=== PATIENT | female | born 1960 | race Caucasian/White ===

== ENCOUNTER → 2025-02-06 11:13 | Outpatient (REF) | payer OTHER, SELFPAY ==
[2025-02-06 13:32] LABS: Rubella Positive
[2025-02-08 04:05] LABS: Quantiferon Mitogen minus NIL 9.96 IU/mL; Quantiferon NIL 0.04 IU/mL; Quantiferon Plus TB1 minus NIL 0.01 IU/mL (<=0.34); Quantiferon Plus TB2 minus NIL 0.03 IU/mL (<=0.34); Quantiferon TB Gold Plus Negative (Negative)
== END ==
LOC: OHS 11:13
PROVIDERS: ATTENDING PHYSICIAN Nurse Practitioner Family
DX: Z23 Encounter for immunization (principal)
CPT/HCPCS: 36415; 86480; 86735; 86762; 86765; 86787

== ENCOUNTER 2025-06-07 17:51 | Emergency (ER) | payer BC, SELFPAY ==
[2025-06-07 17:53] VITALS: BP 150/70
[2025-06-07] MEDS: BENADRYL 50 MG IV (19:00)
[2025-06-07] MEDS: PEPCID 20 MG IV (19:01)
[2025-06-07] MEDS: DELTASONE 50 MG PO (19:02)
--- NOTE | 2025-06-07 20:04 | ED.GENMED ---
History of Present Illness
General
Chief Complaint: Allergic Reaction
Time Seen by Provider: 06/07/25 18:41
Nursing documentation reviewed up to this point in time: agreed with
History of Present Illness
History of Present Illness:
65-year-old female presents to the ER for evaluation of diffuse itchiness and feeling of lip and tongue swelling which started shortly after eating a shrimp seafood boil. Patient states that she experienced these symptoms once before that resolved
after treatment in the emergency department. She has not followed up with her detailer. She did not take any medications prior to arrival. She states that she did have a blotchy rash all over prior to arrival, this seems to have improved. She
does report severe persistent diffuse pruritus. No dyspnea. No nausea or vomiting.
Past History
Past History
ED Past Medical History: Other (IBS, Fibromyalgia, Frequent UTI's, incontinence, pelvic floor syndrome)
ED Past Surgical History: None
Social History
Tobacco: Non-smoker
Alcohol: None
Personal:
Living: with family
Review of Systems
Review of Systems
Allergies reviewed?: Yes
Phy Exam
Physical Exam
Physical Exam:
Patient is awake, alert, appears in no acute distress, mucous membranes moist, conjunctiva pink, posterior pharynx appears normal without edema or uvular deviation, no sublingual swelling seen, no swelling to lips noted, no stridor, no trismus,
heart regular rate and rhythm without murmurs or ectopy, lungs are clear to auscultation without wheezes rales or rhonchi, abdomen is soft and nontender, no rash seen, GCS is 15
Course
Orders/Labs/Results
Orders:
Orders
06/07/25 18:51
Diphenhydramine [Benadryl] 50 mg IV NOW STA
Famotidine [Pepcid] 20 mg IV NOW STA
06/07/25 19:01
Prednisone [Deltasone] 50 mg .ROUTE .STK-MED ONE
Prednisone [Deltasone] 50 mg PO NOW STA
06/08/25 08:00
Prednisone [Deltasone] 50 mg PO DAILY
Vital Signs
Initial and Last Documented VS:
Initial Vital Signs
Temp Pulse Resp BP Pulse Ox
98.3 F 70 18 150/70 96
06/07/25 17:53 06/07/25 17:53 06/07/25 17:53 06/07/25 17:53 06/07/25 17:53
Last Documented Vital Signs
Temp Pulse Resp BP Pulse Ox
98.3 F 70 18 150/70 96
06/07/25 17:53 06/07/25 17:53 06/07/25 17:53 06/07/25 17:53 06/07/25 20:05
MDM/Problems Addressed
Differential Diagnosis Includes:
Differential diagnosis to consider but not limited to seafood allergy, angioedema, along with other etiologies considered
*Pulse Oximetry
SaO2: 96
Nasal Cannula flow liters per minute: 95
Oxygen Mode of Delivery: Room air
Patient hypoxic: no
*Critical Care Note
Total Time (30-74mins, 75-104mins- exclusive of procedures): Not Applicable
Update Note
Update Note:
Given localized nature of symptoms without evidence of lip or tongue swelling and no other system involvement, patient was treated with steroids, Pepcid and Benadryl with complete symptomatic resolution. She was observed for over an hour without
any worrisome new symptoms. I discussed with patient medication use at home including new prescription for EpiPen to administer should she experience the symptoms in the future. I also advised patient benefit of follow-up with her detailer for
reevaluation and further care. Patient expressed understanding of discharge plan and had no questions prior to the department.
ED Attending Note
-
Portions of this chart may have been created with voice recognition software.� Occasional wrong word or��sound alike� substitutions may have occurred due to the inherent limitations of voice recognition software.
Discharge Plan
Departure
Patient Disposition: Home (Routine Discharge)
Date of Disposition: 06/07/25
Time of Disposition: 20:05
Patient with high blood pressure during this ER visit?: Yes
Discharge Problem:
Allergic reaction
Prescriptions:
New
epinephrine [EpiPen 2-Demetrius] 0.3 mg/0.3 mL auto-injector
0.3 mg IM Q5-15M PRN (Reason: anaphylaxis) Qty: 2 0RF
prednisone 50 mg tablet
50 mg PO DAILY Qty: 3 0RF
No Action
levothyroxine 75 MCG tablet
75 mcg PO DAILY
naproxen 500 MG tablet
500 mg PO BIDPRN PRN (Reason: PAIN)
nitrofurantoin monohyd/m-cryst 100 MG capsule
100 mg PO BID
eszopiclone [Lunesta] 3 MG tablet
3 mg PO HS
pregabalin [Lyrica] 300 MG capsule
300 mg PO HS
multivitamin with folic acid [Tab-A-Gisella] 1 TABLET tablet
1 tab PO DAILY
vibegron [Gemtesa] 75 MG tablet
75 mg PO DAILY
Referrals:
Liss Aiken [Other] - Next open appointment
Discharge Problem: Allergic reaction
Rhonda Gutierrez MD [Family Provider, Family Practice]
Activity Restrictions/Additional Instructions:
Complete course of steroids as prescribed. You may need to take additional Benadryl as needed for itchiness. If you experience lip or tongue swelling, please administer EpiPen and return immediately to the ER for further evaluation and care.
Interventions
Interventions:
*Risk Screen - Suicide Last Done: 06/07/25 18:18
*General Assessment Last Done: 06/07/25 18:18
*Neglect/Abuse Screening Last Done: 06/07/25 18:18
*ED- Fall Risk Assessment Last Done: 06/07/25 18:18
ED- Pulmonary Assessment Last Done: 06/07/25 18:16
ED-Skin Assessment Last Done: 06/07/25 18:16
Discharge Date and Time
Print Language: [id number]
== END 2025-06-07 20:15 | disposition home or self-care (01) ==
LOC: EMR 17:51
PROVIDERS: EMERGENCY PHYSICIAN Emergency Medicine; FAMILY PHYSICIAN Family Medicine
DX: T78.1XXA Other adverse food reactions, not elsewhere classified, initial encounter (principal); L29.9 Pruritus, unspecified; X58.XXXA Exposure to other specified factors, initial encounter
CPT/HCPCS: 96374; 96375; 99284

== ENCOUNTER → 2025-08-05 12:09 | Outpatient (REF) | payer OTHER, SELFPAY | LOC: REG 12:09 | PROVIDERS: ATTENDING PHYSICIAN Pediatrics; FAMILY PHYSICIAN Family Medicine | DX: Z91.013 Allergy to seafood (principal); L50.0 Allergic urticaria | CPT/HCPCS: 36415 ==